=== PATIENT | female | born 1955 | race Caucasian/White ===

== ENCOUNTER 2017-01-18 17:38 | Inpatient (IN) | payer SELFPAY ==
[~2017-01-18] VITALS: Ht 165.1 cm; Wt 59.0 kg
[~2017-01-18 17:38] MED LIST: ALBU6.7H IH; ASPI-986 PO; DIGO250T4 PO; DILT360C27 PO; DOCU-150 PO; FERR-63 PO; FURO-151 PO; P20 PO; TRAM50TA73 PO
[2017-01-18] MEDS ORDERED: LORAZEPAM 2MG/ML CPJ IV STA (19:44)
[2017-01-18] MEDS ORDERED: METHYLPREDNISOLONE SOD SUCC 125 MG/2 ML VIAL IV STA (19:44)
[2017-01-18] MEDS ORDERED: LEVOFLOXACIN 750MG PREMIX 150 ML IV ONE (19:45)
[2017-01-18] MEDS ORDERED: MAGNESIUM 2 G PREMIX 50 ML IV ONE (19:45)
[2017-01-18] MEDS ORDERED: IPRATROPIUM/ALBUTEROL 0.5-3(2.5)MG/3ML NEB HHN ONE (19:45)
[2017-01-18 20:17] LABS: BASOPHILS % 3.3 % (0.0-2.0); EOSINOPHILS % 4.7 % (0.0-5.0); HEMATOCRIT. 36.2 % (36.0-48.0); LYMPHOCYTES % 40.1 % (20.0-50.0); MEAN CORPUSCULAR VOLUME 90.5 fL (81.0-99.0); MEAN PLATELET VOLUME 7.4 fl (7.4-10.4); MONOCYTES % 12.7 % (2.0-8.0); NEUTROPHILS % 39.2 % (40.0-76.0); PLATELET 156 x1000/uL (130-400); RED CELL DISTRIBUTION WIDTH 17.4 % (11.6-14.6)
[2017-01-18 20:22] LABS: INR 1.2; PARTIAL THROMBOPLASTIN TIME 26.1 sec (24.0-34.0); PROTHROMBIN TIME 12.6 sec
[2017-01-18 20:30] LABS: CARBON DIOXIDE 28 mEq/L (21-32); CHLORIDE 101 mEq/L (98-107); CREATINE KINASE 181 IU/L (26-192); ETHANOL BLOOD 265 mg/dL; TROPONIN I 0.03 ng/mL (0.00-0.04)
[2017-01-18] MEDS ORDERED: MORPHINE SULFATE 4 MG/ML CPJ (NOT FOR IM USE) IV ONE (20:30)
[2017-01-18] MEDS ORDERED: ONDANSETRON HCL 4MG/2ML VIAL IV ONE (20:30)
[2017-01-18] MEDS ORDERED: ASPIRIN 325MG EC TABLET PO ONE (21:00)
[2017-01-18] MEDS ORDERED: DILTIAZEM HCL 30MG TABLET PO ONE (21:00)
[2017-01-18 23:44] LABS: *AMPHETAMINES SCREEN URINE NEGATIVE (NEGATIVE); *BARBITURATES SCREEN URINE NEGATIVE (NEGATIVE); *BENZODIAZEPINES SCREEN URINE NEGATIVE (NEGATIVE); *COCAINE SCREEN URINE PRESUMTIVE POSITIVE (NEGATIVE); CANNABINOID URINE SCREEN PRESUMTIVE POSITIVE (NEGATIVE); METHADONE URINE SCREEN NEGATIVE (NEGATIVE); OPIATES URINE SCREEN NEGATIVE (NEGATIVE); PHENCYCLIDINE URINE SCREEN NEGATIVE (NEGATIVE)
[2017-01-19] MEDS ORDERED: MAGNESIUM/ALUMINUM HYDROXIDE/SIMETHICONE 30ML UDC PO PRN (03:00)
[2017-01-19] MEDS ORDERED: DIPHENHYDRAMINE 50MG/ML VIAL IV PRN (03:00)
[2017-01-19] MEDS ORDERED: MAGNESIUM HYDROXIDE 400MG/5ML 30ML UDC PO PRN (03:00)
[2017-01-19] MEDS ORDERED: CLONIDINE 0.1MG TABLET PO PRN (03:00)
[2017-01-19] MEDS ORDERED: LORAZEPAM 2MG/ML CPJ IV ONE (03:15)
[2017-01-19 08:00] VITALS: BP 107/75
[2017-01-19] MEDS: DILTIAZEM HCL 90MG TABLET PO SCH ×3 (08:00→21:39)
[2017-01-19 08:10] VITALS: BP 107/75
[2017-01-19] MEDS: ENOXAPARIN 40MG/0.4ML SYR SUBCUT SCH (08:56)
[2017-01-19 12:00] VITALS: BP 121/78
[2017-01-19] MEDS: METHYLPREDNISOLONE SOD SUCC 125 MG/2 ML VIAL IV SCH ×2 (13:53→21:39)
[2017-01-19] MEDS: SODIUM CHLORIDE 0.9% INJ 3ML FLUSH IVF SCH ×2 (13:53→21:39)
[2017-01-19 16:00] VITALS: BP_SYST 102; BP_SYST 131; BP_DIAS 68; BP_DIAS 71
[2017-01-19] MEDS: IPRATROPIUM/ALBUTEROL 0.5-3(2.5)MG/3ML NEB INH PRN ×2 (16:10→21:46)
[2017-01-19 19:57] VITALS: BP 96/65
[2017-01-19] MEDS: LORAZEPAM 0.5MG TABLET PO PRN (20:21)
[2017-01-19] MEDS: ONDANSETRON HCL 4MG/2ML VIAL IV PRN (20:21)
[2017-01-19] MEDS: ACETAMINOPHEN 325MG TABLET PO PRN (23:20)
[2017-01-20 00:02] VITALS: BP 97/60
[2017-01-20 04:02] VITALS: BP 107/63
[2017-01-20] MEDS: SODIUM CHLORIDE 0.9% INJ 3ML FLUSH IVF SCH ×2 (05:49→13:37)
[2017-01-20] MEDS: METHYLPREDNISOLONE SOD SUCC 125 MG/2 ML VIAL IV SCH ×3 (05:49→22:00)
[2017-01-20] MEDS: DILTIAZEM HCL 90MG TABLET PO SCH ×3 (05:52→22:00)
[2017-01-20] MEDS: LORAZEPAM 0.5MG TABLET PO PRN ×3 (05:58→20:52)
[2017-01-20 08:00] VITALS: BP 117/76
[2017-01-20] MEDS: ENOXAPARIN 40MG/0.4ML SYR SUBCUT SCH (08:03)
[2017-01-20] MEDS: IPRATROPIUM/ALBUTEROL 0.5-3(2.5)MG/3ML NEB INH PRN (11:21)
[2017-01-20 12:00] VITALS: BP 108/83
[2017-01-20] MEDS ORDERED: POTASSIUM CHLORIDE 20MEQ TABLET SR PO NR (13:30)
[2017-01-20] MEDS: FUROSEMIDE 40MG/4ML VIAL IVP SCH (13:36)
[2017-01-20] MEDS: GUAIFENESIN 200MG/10ML SUGAR FREE UDC PO PRN (13:37)
[2017-01-20] MEDS: ONDANSETRON HCL 4MG/2ML VIAL IV PRN (13:37)
[2017-01-20] MEDS: ACETAMINOPHEN 325MG TABLET PO PRN ×2 (14:52→20:48)
[2017-01-20 16:00] VITALS: BP 106/86
[2017-01-20 20:00] VITALS: BP 124/90
[2017-01-21] VITALS: BP 120/88
[2017-01-21] MEDS: IPRATROPIUM/ALBUTEROL 0.5-3(2.5)MG/3ML NEB INH PRN ×3 (03:31→15:56)
[2017-01-21 04:00] VITALS: BP 124/86
[2017-01-21] MEDS: SODIUM CHLORIDE 0.9% INJ 3ML FLUSH IVF SCH ×4 (06:30→21:16)
[2017-01-21] MEDS: METHYLPREDNISOLONE SOD SUCC 125 MG/2 ML VIAL IV SCH ×3 (06:31→21:16)
[2017-01-21] MEDS: DILTIAZEM HCL 90MG TABLET PO SCH ×3 (06:33→21:16)
[2017-01-21 08:00] VITALS: BP 125/77
[2017-01-21] MEDS: ENOXAPARIN 40MG/0.4ML SYR SUBCUT SCH (09:00)
[2017-01-21] MEDS: FUROSEMIDE 40MG/4ML VIAL IVP SCH (09:00)
[2017-01-21] MEDS: ACETAMINOPHEN 325MG TABLET PO PRN ×2 (11:23→19:53)
[2017-01-21] MEDS: LORAZEPAM 0.5MG TABLET PO PRN ×2 (11:24→19:53)
[2017-01-21] MEDS: ONDANSETRON HCL 4MG/2ML VIAL IV PRN (11:52)
[2017-01-21 12:00] VITALS: BP 108/62
[2017-01-21 12:09] LABS: CHLORIDE 97 mEq/L (98-107)
[2017-01-21 12:17] LABS: CARBON DIOXIDE 30 mEq/L (21-32)
[2017-01-21] MEDS: GUAIFENESIN 200MG/10ML SUGAR FREE UDC PO PRN ×2 (15:49→21:48)
[2017-01-21 16:00] VITALS: BP 107/76
[2017-01-21] MEDS ORDERED: ZOLPIDEM TARTRATE 5MG TABLET PO PRN (20:15)
[2017-01-21 20:30] VITALS: BP 123/93
[2017-01-22] VITALS: BP 117/78
[2017-01-22 04:00] VITALS: BP 132/84
[2017-01-22] MEDS: LORAZEPAM 0.5MG TABLET PO PRN (06:12)
[2017-01-22] MEDS: GUAIFENESIN 200MG/10ML SUGAR FREE UDC PO PRN (06:12)
[2017-01-22] MEDS: METHYLPREDNISOLONE SOD SUCC 125 MG/2 ML VIAL IV SCH ×2 (06:12→14:00)
[2017-01-22] MEDS: DILTIAZEM HCL 90MG TABLET PO SCH ×2 (06:13→14:29)
[2017-01-22] MEDS: ACETAMINOPHEN 325MG TABLET PO PRN (06:13)
[2017-01-22] MEDS: SODIUM CHLORIDE 0.9% INJ 3ML FLUSH IVF SCH ×2 (06:13→14:29)
[2017-01-22 08:00] VITALS: BP 115/92
[2017-01-22] MEDS: ONDANSETRON HCL 4MG/2ML VIAL IV PRN (08:21)
[2017-01-22] MEDS: FUROSEMIDE 40MG/4ML VIAL IVP SCH (09:00)
[2017-01-22] MEDS: ENOXAPARIN 40MG/0.4ML SYR SUBCUT SCH (09:00)
[2017-01-22 14:40] VITALS: BP 133/92
== END 2017-01-22 15:04 | disposition left against medical advice (07) | DRG 140 ==
LOC: ER 17:47 → 7WST 21:17 → ENRESERV 01-19 07:00
PROVIDERS: ADMIT Internal Medicine; ATTEND Internal Medicine
DX: J44.0 Chronic obstructive pulmonary disease with (acute) lower respiratory infection (principal); J96.90 Respiratory failure, unspecified, unspecified whether with hypoxia or hypercapnia; I50.33 Acute on chronic diastolic (congestive) heart failure; J18.9 Pneumonia, unspecified organism; I27.2 Other secondary pulmonary hypertension; I11.0 Hypertensive heart disease with heart failure; J44.1 Chronic obstructive pulmonary disease with (acute) exacerbation; I48.91 Unspecified atrial fibrillation; F99 Mental disorder, not otherwise specified; Z53.21 Procedure and treatment not carried out due to patient leaving prior to being seen by health care provider; F17.200 Nicotine dependence, unspecified, uncomplicated; F10.10 Alcohol abuse, uncomplicated; Z59.0 Homelessness; Z82.49 Family history of ischemic heart disease and other diseases of the circulatory system
CPT/HCPCS: 36415; 71010; 80048; 80053; 80305; 82550; 83605; 83690; 83735; 83880; 84443; 84484; 85025; 85610; 85730; 87040; 93005; 93970; 94640; 94664; 96365; 96375; 99285; A6261; G0482; J1650; J1940; J1956; J2060; J2270; J2405; J2930; J3475; J7620

== ENCOUNTER 2017-03-24 16:03 | Inpatient (IN) | payer MEDICAID, OTHER ==
[~2017-03-24] VITALS: Ht 139.7 cm; Wt 53.5 kg
[2017-03-24 22:31] LABS: CLARITY URINE CLEAR (CLEAR); COLOR URINE YELLOW (YELLOW); GLUCOSE URINE NEGATIVE (NEGATIVE); KETONES URINE NEGATIVE (NEGATIVE); LEUKOCYTE ESTERASE URINE 2+ (NEGATIVE); NITRITE URINE NEGATIVE (NEGATIVE); OCCULT BLOOD URINE NEGATIVE (NEGATIVE); PROTEIN URINE NEGATIVE (NEGATIVE); SPECIFIC GRAVITY URINE 1.008 (1.005-1.030); UROBILINOGEN URINE 0.2 E.U./dL (0.2-1.0)
[2017-03-24 22:38] LABS: BASOPHILS % 3.5 % (0.0-2.0); EOSINOPHILS % 7.6 % (0.0-5.0); LYMPHOCYTES % 33.9 % (20.0-50.0); MEAN CORPUSCULAR HEMOGLOBIN 32.4 pg (28.0-32.0); MEAN CORPUSCULAR VOLUME 96.9 fL (81.0-99.0); MEAN PLATELET VOLUME 6.8 fl (7.4-10.4); MONOCYTES % 11.4 % (2.0-8.0); NEUTROPHILS % 43.6 % (40.0-76.0); PLATELET 201 x1000/uL (130-400); RED BLOOD CELL COUNT 3.71 mill/uL (4.2-5.4); RED CELL DISTRIBUTION WIDTH 16.8 % (11.6-14.6)
[2017-03-24 22:39] LABS: CHLORIDE 107 mEq/L (98-107)
[2017-03-24 22:43] LABS: *AMPHETAMINES SCREEN URINE NEGATIVE (NEGATIVE); *BARBITURATES SCREEN URINE NEGATIVE (NEGATIVE); *BENZODIAZEPINES SCREEN URINE NEGATIVE (NEGATIVE); *COCAINE SCREEN URINE PRESUMTIVE POSITIVE (NEGATIVE); CANNABINOID URINE SCREEN NEGATIVE (NEGATIVE); METHADONE URINE SCREEN NEGATIVE (NEGATIVE); OPIATES URINE SCREEN NEGATIVE (NEGATIVE); PHENCYCLIDINE URINE SCREEN NEGATIVE (NEGATIVE)
[2017-03-24 22:47] LABS: CARBON DIOXIDE 28 mEq/L (21-32); ETHANOL BLOOD 136 mg/dL
[2017-03-25] MEDS ORDERED: IPRATROPIUM/ALBUTEROL 0.5-3(2.5)MG/3ML NEB HHN ONE (00:15)
[2017-03-25] MEDS ORDERED: CEFTRIAXONE 1 G PREMIX 50 ML IV ONE (00:30)
[2017-03-25] MEDS ORDERED: ALBUTEROL (0.083%) 2.5MG/3ML NEB HHN STA (00:34)
[2017-03-25] MEDS ORDERED: IPRATROPIUM BROMIDE (0.02%) 0.5MG/2.5ML NEB HHN STA (00:34)
[2017-03-25] MEDS ORDERED: METHYLPREDNISOLONE SOD SUCC 125 MG/2 ML VIAL IV STA (00:34)
[2017-03-25 00:47] LABS: BG CARBOXYHEMOGLOBIN 0.8 % (0.5-1.5); BG DEOXYHEMOGLOBIN 2.7 % (0.0-5.0); BG FRACTION INSPIRED OXYGEN 28; BG HCO3 ACT 24.9 mmol/L (22.0-26.0); BG METHEMOGLOBIN 0.3 % (0.0-1.5); BG OXYGEN SATURATION 97.3 % (92.0-98.5); BG OXYHEMOGLOBIN 96.2 % (94.0-97.0); BG PCO2 37.1 mmHg (35.0-45.0); BG PH 7.444 (7.350-7.450); BG PO2 94.1 mmHg (75.0-100.0); BG SAMPLE SITE RIGHT RADIAL; BG TOTAL HEMOGLOBIN 12.2 g/dL (12.0-18.0); BG VENT MODE NASAL CANNULA
[2017-03-25 00:49] LABS: TROPONIN I < 0.02 ng/mL (0.00-0.04)
[2017-03-25] MEDS ORDERED: FUROSEMIDE 40MG/4ML VIAL IVP ONE (01:15)
[2017-03-25] MEDS ORDERED: CLONIDINE 0.1MG TABLET PO PRN (03:45)
[2017-03-25] MEDS ORDERED: DIPHENHYDRAMINE 50MG/ML VIAL IV PRN (03:45)
[2017-03-25 04:34] VITALS: BP 114/87
[2017-03-25] MEDS ORDERED: POTASSIUM CHLORIDE 20MEQ TABLET SR PO NR (05:15)
[2017-03-25] MEDS: IPRATROPIUM/ALBUTEROL 0.5-3(2.5)MG/3ML NEB INH PRN ×2 (05:29→12:10)
[2017-03-25] MEDS: ONDANSETRON HCL 4MG/2ML VIAL IV PRN (05:39)
[2017-03-25] MEDS: HYDROCODONE/ACETAMINOPHEN 5/325MG TABLET PO PRN ×4 (05:39→20:25)
[2017-03-25] MEDS ORDERED: LEVOFLOXACIN 500MG PREMIX 100 ML IV SCH (06:00)
[2017-03-25 08:09] VITALS: BP 110/69
[2017-03-25] MEDS: ENOXAPARIN 40MG/0.4ML SYR SUBCUT SCH (09:00)
[2017-03-25] MEDS: FUROSEMIDE 40MG/4ML VIAL IV SCH (09:00)
[2017-03-25] MEDS: ASPIRIN 81MG EC TABLET PO SCH (09:42)
[2017-03-25] MEDS: AMLODIPINE 10MG TABLET PO SCH (09:42)
[2017-03-25 11:30] LABS: CREATINE KINASE 115 IU/L (26-192); TROPONIN I < 0.02 ng/mL (0.00-0.04)
[2017-03-25] MEDS ORDERED: DOCUSATE SODIUM 100MG CAPSULE PO PRN (11:30)
[2017-03-25] MEDS ORDERED: TRAMADOL 50MG TABLET PO PRN (11:30)
[2017-03-25 12:08] VITALS: BP 106/69
[2017-03-25] MEDS: BUDESONIDE 0.5MG/2ML NEB HHN SCH (15:31)
[2017-03-25] MEDS: IPRATROPIUM/ALBUTEROL 0.5-3(2.5)MG/3ML NEB HHN SCH ×2 (15:32→21:18)
[2017-03-25 15:56] VITALS: BP 101/71
[2017-03-25] MEDS: NICOTINE 21MG PATCH TD SCH (16:00)
[2017-03-25] MEDS: FOLIC ACID 1MG TABLET PO SCH (16:04)
[2017-03-25] MEDS: THIAMINE HCL 100MG TABLET PO SCH (16:04)
[2017-03-25] MEDS: MULTIVITAMINS,THER W-MINERALS TABLET PO SCH (16:04)
[2017-03-25] MEDS: PREDNISONE 20MG TABLET PO SCH (16:05)
[2017-03-25] MEDS: FERROUS SULFATE 325MG TABLET PO SCH ×2 (16:05→18:32)
[2017-03-25 17:32] LABS: CREATINE KINASE 95 IU/L (26-192); TROPONIN I < 0.02 ng/mL (0.00-0.04)
[2017-03-25] MEDS: DIGOXIN 250MCG TABLET PO SCH (18:32)
[2017-03-25] MEDS: GUAIFENESIN 200MG/10ML SUGAR FREE UDC PO PRN (18:32)
[2017-03-25 20:30] VITALS: BP 121/82
[2017-03-26] VITALS (7 sets, daily range): BP systolic 104–120; BP diastolic 64–73
[2017-03-26] MEDS: IPRATROPIUM/ALBUTEROL 0.5-3(2.5)MG/3ML NEB HHN SCH ×5 (05:08→20:05)
[2017-03-26] MEDS: BUDESONIDE 0.5MG/2ML NEB HHN SCH ×3 (05:08→20:05)
[2017-03-26] MEDS: HYDROCODONE/ACETAMINOPHEN 5/325MG TABLET PO PRN ×5 (05:29→23:26)
[2017-03-26 06:57] LABS: MEAN CORPUSCULAR HEMOGLOBIN 32.4 pg (28.0-32.0); MEAN CORPUSCULAR VOLUME 97.4 fL (81.0-99.0); MEAN PLATELET VOLUME 7.3 fl (7.4-10.4); PLATELET 199 x1000/uL (130-400); RED BLOOD CELL COUNT 3.38 mill/uL (4.2-5.4); RED CELL DISTRIBUTION WIDTH 16.7 % (11.6-14.6)
[2017-03-26] MEDS ORDERED: SODIUM BICARBONATE 4% (2.4MEQ) 5ML VIAL IV ONE (07:20)
[2017-03-26] MEDS ORDERED: LIDOCAINE HCL 1% 20ML VIAL (Pyxis) INJ ONE (07:20)
[2017-03-26 07:26] LABS: CARBON DIOXIDE 28 mEq/L (21-32); CHLORIDE 97 mEq/L (98-107)
[2017-03-26 07:37] LABS: LDL CHOLESTEROL 31 mg/dL (5-100)
[2017-03-26 07:54] LABS: HDL CHOLESTEROL 138 mg/dL (40-59)
[2017-03-26] MEDS: NICOTINE 21MG PATCH TD SCH (09:00)
[2017-03-26] MEDS: AMLODIPINE 10MG TABLET PO SCH (09:00)
[2017-03-26] MEDS: ENOXAPARIN 40MG/0.4ML SYR SUBCUT SCH (09:00)
[2017-03-26] MEDS: ONDANSETRON HCL 4MG/2ML VIAL IV PRN ×2 (09:09→18:21)
[2017-03-26] MEDS: FUROSEMIDE 40MG/4ML VIAL IV SCH (09:09)
[2017-03-26] MEDS: FOLIC ACID 1MG TABLET PO SCH (09:10)
[2017-03-26] MEDS: ASPIRIN 81MG EC TABLET PO SCH (09:10)
[2017-03-26] MEDS: PREDNISONE 20MG TABLET PO SCH (09:10)
[2017-03-26] MEDS: MULTIVITAMINS,THER W-MINERALS TABLET PO SCH (09:10)
[2017-03-26] MEDS: THIAMINE HCL 100MG TABLET PO SCH (09:10)
[2017-03-26] MEDS: FERROUS SULFATE 325MG TABLET PO SCH ×2 (09:10→18:14)
[2017-03-26] MEDS: GUAIFENESIN 200MG/10ML SUGAR FREE UDC PO PRN ×4 (09:45→23:27)
[2017-03-26] MEDS: LEVOFLOXACIN 500MG PREMIX 100 ML IV SCH (11:52)
[2017-03-26 13:52] LABS: PLATELET ESTIMATE NORMAL
[2017-03-26] MEDS: DIGOXIN 250MCG TABLET PO SCH (18:14)
[2017-03-26] MEDS: DILTIAZEM HCL 30MG TABLET PO SCH ×2 (18:14→23:27)
[2017-03-27] VITALS (7 sets, daily range): BP systolic 102–130; BP diastolic 61–82
[2017-03-27] MEDS: IPRATROPIUM/ALBUTEROL 0.5-3(2.5)MG/3ML NEB HHN SCH ×7 (00:20→20:21)
[2017-03-27] MEDS: GUAIFENESIN 200MG/10ML SUGAR FREE UDC PO PRN ×5 (04:33→21:10)
[2017-03-27] MEDS: HYDROCODONE/ACETAMINOPHEN 5/325MG TABLET PO PRN ×5 (04:34→21:10)
[2017-03-27] MEDS: ONDANSETRON HCL 4MG/2ML VIAL IV PRN (04:38)
[2017-03-27] MEDS: DILTIAZEM HCL 30MG TABLET PO SCH ×3 (06:34→16:56)
[2017-03-27 06:46] LABS: BASOPHILS % 0.2 % (0.0-2.0); EOSINOPHILS % 0.2 % (0.0-5.0); HEMATOCRIT. 33.5 % (36.0-48.0); HEMOGLOBIN. 11.2 g/dL (12.0-16.0); MEAN CORPUSCULAR HEMOGLOBIN 32.5 pg (28.0-32.0); MEAN CORPUSCULAR VOLUME 97.7 fL (81.0-99.0); MEAN PLATELET VOLUME 7.4 fl (7.4-10.4); MONOCYTES % 9.6 % (2.0-8.0); PLATELET 196 x1000/uL (130-400); RED BLOOD CELL COUNT 3.43 mill/uL (4.2-5.4)
[2017-03-27 07:13] LABS: CARBON DIOXIDE 33 mEq/L (21-32); CHLORIDE 96 mEq/L (98-107)
[2017-03-27] MEDS: THIAMINE HCL 100MG TABLET PO SCH (08:19)
[2017-03-27] MEDS: FUROSEMIDE 40MG/4ML VIAL IV SCH (08:19)
[2017-03-27] MEDS: FERROUS SULFATE 325MG TABLET PO SCH ×2 (08:19→16:55)
[2017-03-27] MEDS: MULTIVITAMINS,THER W-MINERALS TABLET PO SCH (08:19)
[2017-03-27] MEDS: AMLODIPINE 10MG TABLET PO SCH (08:20)
[2017-03-27] MEDS: ASPIRIN 81MG EC TABLET PO SCH (08:20)
[2017-03-27] MEDS: PREDNISONE 20MG TABLET PO SCH (08:20)
[2017-03-27] MEDS: FOLIC ACID 1MG TABLET PO SCH (08:20)
[2017-03-27] MEDS: ENOXAPARIN 40MG/0.4ML SYR SUBCUT SCH (08:33)
[2017-03-27] MEDS: NICOTINE 21MG PATCH TD SCH (08:34)
[2017-03-27] MEDS: DOCUSATE SODIUM 100MG CAPSULE PO PRN ×2 (09:13→21:09)
[2017-03-27] MEDS: BUDESONIDE 0.5MG/2ML NEB HHN SCH ×2 (09:18→20:21)
[2017-03-27] MEDS: LEVOFLOXACIN 500MG PREMIX 100 ML IV SCH (11:24)
[2017-03-27] MEDS: DIGOXIN 250MCG TABLET PO SCH (16:55)
[2017-03-27] MEDS: LACTULOSE 20G/30ML UDC PO NR ×2 (17:07→21:10)
[2017-03-27] MEDS ORDERED: LACTULOSE 20G/30ML UDC PO PRN (17:15)
[2017-03-28] VITALS: BP 126/66
[2017-03-28] MEDS: GUAIFENESIN 200MG/10ML SUGAR FREE UDC PO PRN ×5 (00:29→20:18)
[2017-03-28] MEDS: ZOLPIDEM TARTRATE 5MG TABLET PO PRN ×2 (00:29→21:44)
[2017-03-28] MEDS: DILTIAZEM HCL 30MG TABLET PO SCH ×4 (00:30→17:57)
[2017-03-28] MEDS: HYDROCODONE/ACETAMINOPHEN 5/325MG TABLET PO PRN ×5 (00:38→20:19)
[2017-03-28] MEDS: IPRATROPIUM/ALBUTEROL 0.5-3(2.5)MG/3ML NEB HHN SCH ×6 (01:36→20:18)
[2017-03-28 04:00] VITALS: BP 105/64
[2017-03-28 07:19] LABS: CARBON DIOXIDE 34 mEq/L (21-32); CHLORIDE 97 mEq/L (98-107)
[2017-03-28 07:50] LABS: HEMATOCRIT. 32.4 % (36.0-48.0); HEMOGLOBIN. 10.7 g/dL (12.0-16.0); MEAN CORPUSCULAR HEMOGLOBIN 32.6 pg (28.0-32.0); MEAN CORPUSCULAR VOLUME 98.5 fL (81.0-99.0); MEAN PLATELET VOLUME 7.5 fl (7.4-10.4); PLATELET 190 x1000/uL (130-400); RED BLOOD CELL COUNT 3.29 mill/uL (4.2-5.4); RED CELL DISTRIBUTION WIDTH 17.1 % (11.6-14.6)
[2017-03-28 08:00] VITALS: BP 116/73
[2017-03-28] MEDS: FUROSEMIDE 40MG/4ML VIAL IV SCH (09:00)
[2017-03-28] MEDS: NICOTINE 21MG PATCH TD SCH (09:00)
[2017-03-28] MEDS: ENOXAPARIN 40MG/0.4ML SYR SUBCUT SCH (09:00)
[2017-03-28] MEDS: BUDESONIDE 0.5MG/2ML NEB HHN SCH ×2 (09:24→20:18)
[2017-03-28] MEDS: THIAMINE HCL 100MG TABLET PO SCH (09:32)
[2017-03-28] MEDS: FOLIC ACID 1MG TABLET PO SCH (09:32)
[2017-03-28] MEDS: PREDNISONE 20MG TABLET PO SCH (09:33)
[2017-03-28] MEDS: AMLODIPINE 10MG TABLET PO SCH (09:33)
[2017-03-28] MEDS: MULTIVITAMINS,THER W-MINERALS TABLET PO SCH (09:33)
[2017-03-28] MEDS: ASPIRIN 81MG EC TABLET PO SCH (09:34)
[2017-03-28] MEDS: FERROUS SULFATE 325MG TABLET PO SCH ×2 (09:34→17:57)
[2017-03-28 12:00] VITALS: BP 120/70
[2017-03-28] MEDS: ONDANSETRON HCL 4MG/2ML VIAL IV PRN (12:18)
[2017-03-28] MEDS: LEVOFLOXACIN 500MG PREMIX 100 ML IV SCH (12:19)
[2017-03-28 16:00] VITALS: BP 128/65
[2017-03-28] MEDS: DIGOXIN 250MCG TABLET PO SCH (17:57)
[2017-03-28 20:08] VITALS: BP 109/67
[2017-03-28 22:40] LABS: PLATELET ESTIMATE NORMAL
[2017-03-29] MEDS: IPRATROPIUM/ALBUTEROL 0.5-3(2.5)MG/3ML NEB HHN SCH ×3 (00:03→07:55)
[2017-03-29 00:23] VITALS: BP 104/61
[2017-03-29] MEDS: GUAIFENESIN 200MG/10ML SUGAR FREE UDC PO PRN ×2 (00:31→04:41)
[2017-03-29] MEDS: HYDROCODONE/ACETAMINOPHEN 5/325MG TABLET PO PRN ×2 (00:32→04:42)
[2017-03-29 04:32] VITALS: BP 114/66
[2017-03-29] MEDS: ONDANSETRON HCL 4MG/2ML VIAL IV PRN (05:34)
[2017-03-29 05:52] VITALS: BP 105/62
[2017-03-29] MEDS: DILTIAZEM HCL 30MG TABLET PO SCH ×2 (05:53)
[2017-03-29 07:21] VITALS: BP 117/77
[2017-03-29] MEDS: BUDESONIDE 0.5MG/2ML NEB HHN SCH (07:55)
[2017-03-29] MEDS: PREDNISONE 20MG TABLET PO SCH (08:15)
[2017-03-29] MEDS: MULTIVITAMINS,THER W-MINERALS TABLET PO SCH (08:15)
[2017-03-29] MEDS: FOLIC ACID 1MG TABLET PO SCH (08:15)
[2017-03-29] MEDS: FERROUS SULFATE 325MG TABLET PO SCH (08:15)
[2017-03-29] MEDS: ASPIRIN 81MG EC TABLET PO SCH (08:15)
[2017-03-29] MEDS: ENOXAPARIN 40MG/0.4ML SYR SUBCUT SCH (08:16)
[2017-03-29] MEDS: THIAMINE HCL 100MG TABLET PO SCH (08:16)
[2017-03-29] MEDS: FUROSEMIDE 40MG/4ML VIAL IV SCH (08:17)
[2017-03-29] MEDS: AMLODIPINE 10MG TABLET PO SCH (08:17)
[2017-03-29] MEDS: NICOTINE 21MG PATCH TD SCH (08:17)
[2017-03-29 09:32] VITALS: BP 117/78
[2017-03-29] MEDS ORDERED: ALPR0.5T PO (10:10)
[2017-03-29] MEDS ORDERED: HYDR-523 PO (10:10)
[2017-03-29] MEDS ORDERED: LEVOFLOXACIN 500MG TABLET PO SCH (11:00)
== END 2017-03-29 12:00 | disposition home or self-care (01) | DRG 133 ==
LOC: ER 16:35 → 6WST 03-25 01:10 → ENRESERV 03-25 01:57
PROVIDERS: ADMIT Hospitalist; ATTEND Hospitalist
PROC: 02HV33Z Insertion of Infusion Device into Superior Vena Cava, Percutaneous Approach (ICD-10-PCS; principal; 2017-03-26)
PROC: B5181ZA Fluoroscopy of Superior Vena Cava using Low Osmolar Contrast, Guidance (ICD-10-PCS; 2017-03-26)
PROC: B548ZZA Ultrasonography of Superior Vena Cava, Guidance (ICD-10-PCS; 2017-03-26)
DX: J96.00 Acute respiratory failure, unspecified whether with hypoxia or hypercapnia (principal); I50.33 Acute on chronic diastolic (congestive) heart failure; J44.1 Chronic obstructive pulmonary disease with (acute) exacerbation; I27.2 Other secondary pulmonary hypertension; I11.0 Hypertensive heart disease with heart failure; N39.0 Urinary tract infection, site not specified; F41.9 Anxiety disorder, unspecified; E87.70 Fluid overload, unspecified; J98.11 Atelectasis; E87.6 Hypokalemia; B19.20 Unspecified viral hepatitis C without hepatic coma; E78.00 Pure hypercholesterolemia, unspecified; F14.10 Cocaine abuse, uncomplicated; F17.210 Nicotine dependence, cigarettes, uncomplicated; I48.2 Chronic atrial fibrillation; Z59.0 Homelessness; Z82.49 Family history of ischemic heart disease and other diseases of the circulatory system; Z91.19 Patient's noncompliance with other medical treatment and regimen
CPT/HCPCS: 36415; 36569; 36600; 71010; 76937; 77001; 80048; 80053; 80061; 80162; 80305; 81001; 82375; 82550; 82805; 83690; 83735; 83880; 84443; 84484; 85025; 93005; 93306; 93971; 94640; 96365; 96375; 99285; A6261; C1725; G0482; J0696; J1650; J1940; J1956; J2405; J2930; J3490; J7040; J7050; J7512; J7620; J7626